=== PATIENT | female | born 1960 | race Caucasian/White ===

== ENCOUNTER 2024-01-17 11:39 | Outpatient (CLI) | payer BC | END 2024-01-17 23:59 | disposition home or self-care (01) | LOC: RAD 11:39 | PROVIDERS: ATTEND Physician Assistant | DX: M79.642 Pain in left hand (principal); M79.641 Pain in right hand | CPT/HCPCS: 73130 ==

== ENCOUNTER 2025-03-02 08:25 | Day surgery (SDC) | payer BC ==
[~2025-03-02] VITALS: Ht 162.6 cm; Wt 65.7 kg
[2025-03-02] VITALS (7 sets, daily range): BP systolic 88–114; BP diastolic 60–74; PULSE 52–84; RESP 12–16; TEMP 98.1; O2SAT 98–100
[2025-03-02] MEDS: ringers solution, lacted 1,000 ML IV SCH (05:30)
[~2025-03-02 08:25] MED LIST: NO HOME MEDS
== END 2025-03-02 13:07 | disposition home or self-care (01) ==
LOC: GI LAB 08:25
PROVIDERS: ATTEND Internal Medicine Gastroenterology
DX: R19.5 Other fecal abnormalities (principal); D12.5 Benign neoplasm of sigmoid colon; D12.8 Benign neoplasm of rectum; K63.5 Polyp of colon; E78.00 Pure hypercholesterolemia, unspecified; F17.210 Nicotine dependence, cigarettes, uncomplicated; Z90.49 Acquired absence of other specified parts of digestive tract
CPT/HCPCS: 45380; 45385; J7120; Z7512; A4615

== ENCOUNTER 2025-03-02 12:09 | Outpatient (CLI) | payer BC ==
[~2025-03-02 12:09] MED LIST changes: +LIDOcaine 1%/PF 5ML 10 MG/ML VIAL ONE; +fentaNYL/PF 50MCG/1 ML 2ML syringe ONE; +midazolam 1 mg/ML 2ml injection ONE; +propofol inj 20 ML IV ONE
[2025-03-02 12:27] VITALS: BP 88/65; PULSE 84; RESP 16; O2SAT 100
[2025-03-02 12:30] VITALS: BP 109/69; PULSE 54; RESP 12; O2SAT 100
[2025-03-02 12:40] VITALS: BP 109/69; PULSE 54; RESP 12; O2SAT 100
[2025-03-02 12:50] VITALS: BP 102/60; PULSE 56; RESP 14; O2SAT 99
[2025-03-02 13:00] VITALS: BP 114/67; PULSE 67; RESP 12; O2SAT 98
[2025-03-02 13:10] VITALS: BP 98/70; PULSE 57; RESP 14; O2SAT 99
--- NOTE | 2025-03-02 15:54 | RADIOLOGY REPORT ---
EXAM: CT CT CHEST LOW DOSE INDICATION: NICOTINE DEPENDENCE, CIGARETTES, UNCOMPLICATED TECHNIQUE: Low-dose noncontrast CT of the lungs have been obtained. All CT scans at this facility use dose modulation, iterative reconstruction, and/or weight based dosing when appropriate to reduce radiation dose to as low as reasonably achievable. COMPARISON: None FINDINGS: LOWER NECK: Unremarkable LYMPH NODES/MEDIASTINUM: Oval-shaped fissural lymph node versus nodule measuring 7 mm along the right major fissure. On sagittal plane, lymph node demonstrates slightly lenticular morphology and is likely benign. CARDIOVASCULAR: Normal cardiac size. No pericardial effusion. No aneurysmal dilatation of the great vessels. Aberrant right subclavian artery. No significant coronary artery calcifications. UPPER ABDOMEN: Limited evaluation secondary to photon starvation. Unremarkable. MUSCULOSKELETAL: Multilevel degenerative change of the visualized spine. No acute fracture or aggressive focal osseous lesion. CHEST WALL: Unremarkable. LUNG/PLEURAL SPACE: Scattered bilateral pulmonary nodules most dominant pulmonary nodules located along the right minor fissure measuring up to 6 mm (axial 51) and in the lateral segment of the right middle lobe measuring 4 mm. Overall no spiculated pulmonary nodule. Overall nodules are likely benign. No pleural effusion or pneumothorax. IMPRESSION: 1. Scattered bilateral pulmonary nodules most dominant pulmonary nodules located along the right minor fissure measuring up to 6 mm (axial 51) and in the lateral segment of the right middle lobe measuring 4 mm. 2. Overall no spiculated pulmonary nodule. 3. Overall nodules are likely benign. 4. Lung-RADS Category 2: Benign appearance or behavior. 5. Continue annual screening with low dose CT in 12 months. CITATION: Lung cancer screening categorization and recommendations per [employer] Lung-RADS Version 1.0 (http://www.acr.org/Quality- Safety/Resources/LungRADS).
--- NOTE | 2025-03-03 15:03 | PATHOLOGY REPORT ---
[facility] [address] [place] [address] SURGICAL PATHOLOGY REPORT CaseNumber: [id number] Surgeon:Flor Onofre M.D. CLINICAL INFORMATION CLINICAL INFORMATION: Rectal mass. Screening. 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 POLYP, SIGMOID COLON, BIOPSY MICROSCOPIC DESCRIPTION: Reviewed are four H&E-stain slides showing sections of a breadloafed colon polyp involved by adenomatous changes measuring up to 2.1 cm in greatest dimension. While there are areas of mild architectural complexity, no features of high-grade dysplasia or malignancy are identified. B. POLYP, PROXIMAL ASCENDING COLON, MULTIPLE BIOPSI MICROSCOPIC DESCRIPTION: Reviewed is a single H&E-stained slide showing serial sections and levels of multiple polypoid fragments of colonic mucosa. There are areas involved by hyperplastic changes. There are no serrated, dysplastic or neoplastic features. C. MASS, RECTUM, BIOPSIES X 4 MICROSCOPIC DESCRIPTION: Reviewed is a single H&E-stained slide showing sections of fragments of colonic mucosa involved by a tubulovillous adenoma measuring up to 0.4 cm. While there are areas of mild architectural complexity, no clear features of high-grade dysplasia or malignancy are identified. D. POLYP, DESCENDING COLON, MULTIPLE BIOPSIES MICROSCOPIC DESCRIPTION: Reviewed is a single H&E-stained slide showing serial sections and levels of multiple polypoid fragments of colonic mucosa. There are areas involved by hyperplastic changes. There are no serrated, dysplastic or neoplastic features. GROSS DESCRIPTION A. POLYP, SIGMOID COLON, BIOPSY GROSS DESCRIPTION: Received in a container of formalin labeled with the patient's name, number, and "sigmoid colon polyp" is a 2.1 x 1.5 x 1.3 cm polypoid piece of ugarte tissue. The specimen is sectioned. The specimen is entirely submitted as A1-A4. The time at which the specimen was removed was not provided. The time at which the specimen was placed in formalin was not provided. B. POLYP, PROXIMAL ASCENDING COLON, MULTIPLE BIOPSI GROSS DESCRIPTION: Received in a container of formalin labeled with the patient's name, number, and "proximal ascending colon polyp" is a 1.7 x 0.6 x 0.6 cm aggregate of irregularly shaped pieces of ugarte tissue. The specimen is entirely submitted as B1. The time at which the specimen was removed was not provided. The time at which the specimen was placed in formalin was not provided. C. MASS, RECTUM, BIOPSIES X 4 GROSS DESCRIPTION: Received in a container of formalin labeled with the patient's name, number, and "rectal mass BX" are 4 irregularly shaped pieces of ugarte tissue 0.2-0.6 x 0.2 x 0.1 cm. The specimen is entirely submitted as C1. The time at which the specimen was removed was not provided. The time at which the specimen was placed in formalin was not provided. D. POLYP, DESCENDING COLON, MULTIPLE BIOPSIES GROSS DESCRIPTION: Received in a container of formalin labeled with the patient's name, number, and "descending colon polyp" is a 1.2 x 1.3 x 0.4 cm aggregate of irregularly shaped pieces of ugarte tissue. The specimen is sectioned. The specimen is entirely submitted as D1. The time at which the specimen was removed was not provided. The time at which the specimen was placed in formalin was not provided. Electronically signed by: Mathieu Romero M.D. 03/03/2025 2:25:00 PM
== END 2025-03-02 23:59 | disposition home or self-care (01) ==
LOC: RAD 12:09
PROVIDERS: ATTEND Physician Assistant
DX: Z12.2 Encounter for screening for malignant neoplasm of respiratory organs (principal); F17.210 Nicotine dependence, cigarettes, uncomplicated; R91.8 Other nonspecific abnormal finding of lung field; M47.814 Spondylosis without myelopathy or radiculopathy, thoracic region
CPT/HCPCS: 71271; J2250; J2704; J3010; J3490